=== PATIENT | female | born 1955 | race Caucasian/White ===

== ENCOUNTER 2022-04-24 08:39 | Outpatient (CLI) | payer OTHER, SELFPAY ==
[2022-04-24 10:11] LABS: Cholesterol* 224 mg/dL (90-199); HDL Cholesterol* 86 mg/dL (>=50); LDL Cholesterol Calculated 123 mg/dL (<100); Triglycerides* 76 mg/dL (40-149)
[2022-04-24 10:42] LABS: TSH With Reflex to FT4* 0.636 uIU/mL (0.270-4.200)
== END 2022-04-24 08:40 | disposition home or self-care (01) ==
PROVIDERS: PCP Physician Assistant Surgical; Visit Provider Obstetrics & Gynecology
DX: Z01.419 Encounter for gynecological examination (general) (routine) without abnormal findings (principal); Z13.6 Encounter for screening for cardiovascular disorders; Z13.29 Encounter for screening for other suspected endocrine disorder
CPT/HCPCS: 80061; 84443

== ENCOUNTER 2022-04-28 08:02 | Outpatient (CLI) | payer OTHER, SELFPAY ==
--- NOTE | 2022-04-28 08:15 | CRLHL7_ITS ---
For Patients: As a result of the Century Cures Act, medical imaging exams and procedure reports are released immediately into your electronic medical record. You may view this report before your referring provider. If you have questions, please contact your health care provider. BILATERAL SCREENING MAMMOGRAM WITH COMPUTER-AIDED DETECTION AND TOMOSYNTHESIS TECHNIQUE: CC and MLO views were obtained. These mammographic images have been obtained using full-field digital technique. These mammographic images were interpreted with the benefit of computer-aided detection. Breast tomosynthesis was used in this interpretation. COMPARISON FILM: 08/22/20, 04/20/19, 08/25/16. FINDINGS: There are scattered areas of fibroglandular density. IMPRESSION: There is no radiographic evidence for malignancy. ASSESSMENT: BI-RADS Category 2: Benign RECOMMENDATION: Routine screening mammogram in 1 year. A lay language report of this examination will be provided to the patient. AFIA AMANDA M.D. Diagnostic/Nuclear Medicine Radiologist [email or web address] Transcribed: 3:[address]/Dictated by: Afia Amanda MD @ 04/28/2022 9:08:00 AM (Electronically Signed)
== END 2022-04-28 08:03 | disposition home or self-care (01) ==
LOC: MAMMO 08:02
PROVIDERS: PCP Physician Assistant Surgical; Visit Provider Obstetrics & Gynecology
DX: Z12.31 Encounter for screening mammogram for malignant neoplasm of breast (principal)
CPT/HCPCS: 77063; 77067

== ENCOUNTER 2022-05-07 15:12 | Outpatient (CLI) | payer OTHER, SELFPAY ==
--- NOTE | 2022-05-07 15:30 | CRLHL7_ITS ---
For Patients: As a result of the Century Cures Act, medical imaging exams and procedure reports are released immediately into your electronic medical record. You may view this report before your referring provider. If you have questions, please contact your health care provider. DXA BONE MINERAL DENSITY STUDY Reason for exam: Encounter for well woman exam. Current height (in): 63.5. Weight (lb): 160. Menopause age: 41. Ethnicity: White. 1. Have you had a previous hip or vertebral fracture? No. 2. Have you had any fractures during your adult life which did not result from significant trauma (e.g., auto accident)? No. 3. Did either of your parents have a hip fracture? No. 4. Do you smoke? Yes. 5. Have you ever taken Glucocorticoids? No. 6. Do you have rheumatoid arthritis? No. 7. Do you have secondary osteoporosis? No. 8. Do you drink 3 or more alcoholic drinks per day? No. 9. Are you being treated for osteoporosis? No. 10. Have you ever taken any of the following medications: Actonel, Evista, Fosamax, Miacalcin, Reclast, Boniva, Forteo, HRT (i.e., estrogen/hormone therapy), Protelos, Prolia, Vitamin D, Calcium, other ??? please specify. ANSWER: Yes, Vitamin D and calcium. 11. Do you have any of the following medical conditions: Anorexia or bulimia, asthma or emphysema, end stage renal disease, hyperparathyroidism, any seizure disorders, cancer, inflammatory bowel diseases, hysterectomy, other ??? please specify. ANSWER: Yes, cancer and hysterectomy. 12. What was your maximum height (inches)? 64. 13. Do you perform weight bearing exercise regularly? No. 14. Do you regularly consume dairy products? Yes. 15. Do you drink caffeinated beverages? Yes. If female: 16. At what age did your period start? 14. 17. Are you premenopausal? No. 18. How many full-term pregnancies have you had? 2. 19. Have you ever missed your period for more than 6 months in a row (not including or menopause)? No. TECHNIQUE: Bone mineral density study was performed using the [employer]. FINDINGS: The results of the study expressed as bone mineral density (BMD) are as follows: Lumbar spine L1 to L3: BMD: 0.975 g/cm2. T-score: -0.4. Z-score: 1.4 Neck Left: BMD: 0.814 g/cm2. T-score: -0.3. Z-score: 1.3 Right: BMD: 0.779 g/cm2. T-score: -0.6. Z-score: 1.0 Total Left: BMD: 0.912 g/cm2. T-score: -0.2. Z-score: 1.1 Right: BMD: 0.917 g/cm2. T-score: -0.2. Z-score: 1.1 IMPRESSION: Normal bone density. Lake Ochoa M.D. Diagnostic Radiologist [email or web address] ARMANDO/dali mcnally/Dictated by: Lake Ochoa MD @ 05/07/2022 4:30:00 PM (Electronically Signed)
== END 2022-05-07 15:13 | disposition home or self-care (01) ==
LOC: RAD 15:14
PROVIDERS: Visit Provider Obstetrics & Gynecology
DX: Z13.820 Encounter for screening for osteoporosis (principal)
CPT/HCPCS: 77080

== ENCOUNTER 2022-05-14 09:54 | Outpatient (CLI) | payer OTHER, SELFPAY ==
[2022-05-14 14:00] LABS: Albumin* 4.3 g/dL (3.3-5.0)
[2022-05-14 14:03] LABS: Alkaline Phosphatase* 64 U/L (40-150); Aspartate Amino Transferase* 25 U/L (12-35); Bilirubin Direct* 0.2 mg/dL (0.0-0.5); Bilirubin Total* 0.6 mg/dL (0.1-1.5); Total Protein* 7.1 g/dL (6.0-8.3)
[2022-05-14 14:04] LABS: Alanine Aminotransferase* 26 U/L (4-35)
[2022-05-14 14:09] LABS: Vitamin D 25 Hydroxy* 58 ng/mL (30-80)
== END 2022-05-14 09:55 | disposition home or self-care (01) ==
PROVIDERS: PCP Obstetrics & Gynecology; Visit Provider Nurse Practitioner Family
DX: Z01.419 Encounter for gynecological examination (general) (routine) without abnormal findings (principal); B35.1 Tinea unguium; E78.00 Pure hypercholesterolemia, unspecified; Z13.21 Encounter for screening for nutritional disorder; E07.9 Disorder of thyroid, unspecified; R73.03 Prediabetes
CPT/HCPCS: 80076; 82306

== ENCOUNTER 2024-09-27 15:40 | Outpatient (CLI) | payer MEDICARE, BC, SELFPAY | END 2024-09-27 15:41 | disposition home or self-care (01) | LOC: NFLDREF 09-30 20:29 | PROVIDERS: PCP Obstetrics & Gynecology; Referring Provider Obstetrics & Gynecology; Visit Provider Physician Assistant Surgical | DX: N30.01 Acute cystitis with hematuria (principal); B96.89 Other specified bacterial agents as the cause of diseases classified elsewhere | CPT/HCPCS: 87086 ==